=== PATIENT | female | born 1950 | race Caucasian/White ===

== ENCOUNTER 2017-07-24 05:25 | Inpatient (IN) ==
[2017-07-19 12:50] LABS: Basophils # (Auto) 0 K/mcL (0.0-0.3); Basophils % (Auto) 0.4 % (0.0-2.0); Eosinophils # (Auto) 0.2 K/mcL (0.0-0.7); Eosinophils % (Auto) 2.1 % (0.0-7.0); Granulocytes % (Auto) 70.6 % (38.0-78.0); Lymphocytes # (Auto) 1.6 K/mcL (1.5-4.8); Lymphocytes % (Auto) 19.4 % (15.5-49.0); Mean Cell Volume 92.9 fL (80.0-100.0); Mean Corpuscular HGB Conc 34.1 g/dL (31.0-36.0); Mean Corpuscular Hemoglobin 31.6 pg (26.0-34.0); Monocytes # (Auto) 0.6 K/mcL (0.1-0.9); Monocytes % (Auto) 7.5 % (1.0-12.0); Platelet Count 321 K/mcL (140-440); RBC 4.78 M/mcL (4.00-5.20); Red Cell Distribution Width 13.7 % (11.5-14.5)
[2017-07-19 12:51] LABS: Blood Urea Nitrogen 12 mg/dl (8-23)
[2017-07-19 13:08] LABS: Appearance,Urine CLEAR; Bacteria,Urine 0 /hpf (0); Bilirubin,Urine NEG (NEG); Color,Urine STRAW; Glucose,Urine (UA) NEGATIVE (NEG); Leukocyte Esterase,Urine 500 /uL (NEG); Mucus,Urine FEW /hpf (0); Nitrate,Urine NEG (NEG); Protein,Urine NEG (NEG); Specific Gravity,Urine 1.004 (1.000-1.035); Urine Blood 0.2 mg/dL (<0.03); Urine RBC 0 /hpf (0-1); Urine Squamous Epithelial Cell 1 /hpf (0-4); Urine Transitional Epi Cells < 1 /hpf (0-2); Urine WBC 17 /hpf (0-4); Urobilinogen,Urine NEG (NEG)
[~2017-07-24 05:25] MED LIST: CELECOXIB 200 MG CAPSULE PO SCH; PREGABALIN 75 MG CAPSULE PO SCH; ceFAZolin 1 GM VIAL IV SCH; oxyCODONE 10 MG TAB.ER.12H PO SCH
[2017-07-24] MEDS ORDERED: KETOROLAC 30 MG, ROPIVACAINE HCL/PF 49.5 ML, EPINEPHrine 0.5 MG, 0.9 % SODIUM CHLORIDE ... IJ SCH (06:30)
[2017-07-24] MEDS ORDERED: TRANEXAMIC ACID 1,000 MG/10 ML VIAL IV ONE (10:00)
[2017-07-24] MEDS ORDERED: LIDOCAINE HCL/PF 100 MG/5 ML SYRINGE IV ONE (10:00)
[2017-07-24] MEDS ORDERED: MIDAZOLAM 2 MG/2 ML VIAL IV ONE (10:00)
[2017-07-24] MEDS ORDERED: DEXAMETHASONE 10 MG/ML VIAL IV ONE (10:00)
[2017-07-24] MEDS ORDERED: ROPIVACAINE HCL/PF 20 ML VIAL IJ ONE (10:00)
[2017-07-24] MEDS ORDERED: ONDANSETRON 4 MG/2 ML VIAL IV ONE (10:00)
[2017-07-24] MEDS ORDERED: PROPOFOL 200 MG/20 ML VIAL IV ONE (10:00)
[2017-07-24] MEDS ORDERED: GENTAMICIN SULFATE 800 MG/20 ML VIAL IR ONE (11:02)
[2017-07-24] MEDS ORDERED: diphenhydrAMINE 50 MG/ML VIAL IV PRN (11:10)
[2017-07-24] MEDS ORDERED: METHOCARBAMOL 1,000 MG/10 ML VIAL IV PRN (11:10)
[2017-07-24] MEDS ORDERED: IPRATROPIUM/ALBUTEROL 3 ML AMPUL.NEB NEB PRN (11:10)
[2017-07-24] MEDS ORDERED: LACTATED RINGERS 250 ML IV PRN (11:10)
[2017-07-24] MEDS ORDERED: HYDROmorphone 2 MG/ML SYRINGE IV PRN ×2 (11:10→11:23)
[2017-07-24] MEDS ORDERED: FLUMAZENIL 0.1 MG/ML ML IV PRN (11:10)
[2017-07-24] MEDS ORDERED: PROMETHAZINE 25 MG/ML VIAL IM PRN (11:10)
[2017-07-24] MEDS ORDERED: BENZOCAINE/MENTHOL 1 LOZENGE PO PRN ×2 (11:10→11:23)
[2017-07-24] MEDS ORDERED: MEPERIDINE 50 MG/ML SYRINGE IM PRN (11:10)
[2017-07-24] MEDS ORDERED: ONDANSETRON 4 MG/2 ML VIAL IV PRN ×2 (11:10→11:23)
[2017-07-24] MEDS ORDERED: NALOXONE HCL 0.4 MG/ML VIAL IV PRN (11:10)
[2017-07-24] MEDS ORDERED: PROMETHAZINE 25 MG/ML VIAL IV PRN (11:10)
[2017-07-24] MEDS ORDERED: ePHEDrine 50 MG/ML AMPUL IV PRN (11:10)
[2017-07-24] MEDS ORDERED: MEPERIDINE 25 MG/ML SYRINGE IV PRN (11:10)
[2017-07-24] MEDS ORDERED: LACTATED RINGERS 1,000 ML IV SCH (11:15)
[2017-07-24] MEDS ORDERED: METHOCARBAMOL 750 MG TABLET PO PRN (11:23)
[2017-07-24] MEDS ORDERED: FLEETS ADULT ENEMA PR PRN (11:23)
[2017-07-24] MEDS ORDERED: POLYETHYLENE GLYCOL 3350 17 GM PACKET PO PRN (11:23)
[2017-07-24] MEDS ORDERED: ONDANSETRON ODT 4 MG TABLET SL PRN (11:23)
[2017-07-24] MEDS ORDERED: TRANEXAMIC ACID 1,000 MG/10 ML VIAL IV SCH (11:23)
[2017-07-24] MEDS ORDERED: BISACODYL 10 MG SUPP.RECT PR PRN (11:23)
[2017-07-24] MEDS ORDERED: MAGNESIUM HYDROXIDE 30 ML ORAL.SUSP PO PRN (11:23)
--- NOTE | 2017-07-24 11:23 | Brief Operative Note ---
Date of procedure: 07/24/17 Pre-op diagnosis: right knee oa Post-op diagnosis: same Procedure: right total knee arthroplasty Grafts/Implants: Yes Anesthesia: spinal Complications: none Surgeon: Renan Cardoso Endoscopy Support Specialist: Saloni Ochoa Estimated blood loss (cc): 100 Specimens Removed/Pathology: none sent Condition: stable Disposition: PACU
[2017-07-24] MEDS: ACETAMINOPHEN 1,000 MG/100 ML BOTTLE IV SCH ×2 (11:45→18:28)
[2017-07-24] MEDS: fentaNYL 100 MCG/2 ML VIAL IV PRN ×3 (11:50→12:05)
--- NOTE | 2017-07-24 12:33 | Operative Note ---
DATE OF OPERATION: 07/24/2017 PREOPERATIVE DIAGNOSIS: Degenerative joint disease, right knee. POSTOPERATIVE DIAGNOSIS: Degenerative joint disease, right knee. PROCEDURE: Right total knee arthroplasty. SURGEON: Alex Cardoso M.D. AGRICULTURAL ECONOMICS TEACHER SURGEON: Saloni Ochoa PA-C ANESTHESIA: Spinal with LMA assist. ESTIMATED BLOOD LOSS: 100 mL COMPLICATIONS: None noted. SPECIMENS REMOVED: None DRAINS: Medium Hemovac x 1. TOURNIQUET TIME: 54 minutes at 300 mmHg IMPLANTS: DePuy Attune femoral posterior stabilized size 6, right narrow; DePuy Attune fixed bearing tibial baseplate size 5 cemented; DePuy Attune tibial insert fixed bearing posterior stabilized size 6, 5 mm AOX; DePuy Attune patella medialized dome, 35 mm cemented AOX; DePuy CMW2 bone cement 20 grams x4. INDICATIONS: The patient has had a long-standing history of worsening pain in the knee that has failed conservative treatment. Radiographs have confirmed advanced degenerative joint disease. After a long discussion about treatment options, the patient elected to proceed with a knee arthroplasty. The risks and benefits were discussed with the patient in detail including, but not limited to, the risks of anesthesia, problems with the heart or lungs related to anesthesia, infection, compromise or injury to the nerves and blood vessels, deep venous thrombosis, pulmonary embolism, pneumonia, continued pain after surgery, worsening pain or symptoms after surgery, swelling, loss of motion, instability, leg length discrepancy, and need for repeat surgery. DESCRIPTION OF PROCEDURE: The patient was seen in the pre-anesthesia waiting room where all questions were answered and the correct side and site were identified and marked. The patient was transferred to the operating room and administered the anesthetic and given pre-operative antibiotics. A time-out was then called. The extremity was prepped and draped, exsanguinated, and the tourniquet was inflated to 300 mmHg. A midline skin incision was then made with a standard medial parapatellar arthrotomy. Debridement of the menisci, ACL, and PCL was performed followed by balancing releases in the medial lateral plane. We then established intramedullary access to both the femur and tibia in a standard fashion. The femoral guide fox was initially placed with the distal femoral guide, pinned into place, and the distal femoral cut was performed and checked with a flat plate. We then turned our attention to the tibia. The intramedullary guide was placed with the proximal tibial cutting block. The block was appropriately positioned off the affected side, varus and valgus was checked with the extra-medullary guide, and the block was pinned into place. The proximal tibial cut was performed and the tibia was prepared for the tibial implant with appropriate rotation. The tibia, femur, and posterior compartment were debrided of osteophytes, loose bodies, and meniscal fragments We then used the gap balancing technique to balance extension with the first two cuts and good balancing was obtained with a 10 millimeter gap block. We turned our attention back to the femur and used the referencing block and implant to size appropriately. Using the gap balancing technique for the flexion space we set our rotation of the femur off the tibial cut. Anesthesia gave the patient 1 gram of Tranexamic Acid via an intravenous route. We placed the 4 in 1 cutting block and made anterior, posterior, and chamfer cuts. Box plasty cuts were then made in a standard fashion for the posterior stabilized prosthesis. We then completed osteophyte release and posterior capsule release from the posterior compartment. Trials were placed and we chose the polyethylene insert thickness that provided the best stability in all planes. With the trials in place, we did a measured resection for a resurfacing patella. We sized the patella and placed the patella trial and performed a lateral facetectomy with the saw and rongeur. Good tracking was obtained. We removed all trials, irrigated and dried all cut surfaces. We cemented the components into place including tibia, femur and patella. We placed a trial liner and held the knee in full extension with the patella compressed while the cement cured. We then removed all excess cement and placed the final polyethylene tibiofemoral component. Irrigation with 3 liters of antibiotic saline was then performed using jet-lavage. We let the tourniquet down and coagulated bleeding vessels. We injected a 100 cubic centimeter volume including Ropivacaine 49.25 cubic centimeters at 5 milligrams per cubic centimeter, Ketorolac 30 milligrams, and Epinephrine 0.5 milligrams into 100 cubic centimeters volume of normal saline. We placed a deep drain and closed the retinaculum with looped #0 Maxon. We closed the subcutaneous tissue and skin in layers out to ole in the skin. A sterile pressure dressing was applied. All needle and sponge counts were correct. The patient was transferred to the recovery room in stable condition. WANDY:cheryl Job ID: [id number] Doc ID: [id number] Alex Cardoso MD
--- NOTE | 2017-07-24 12:39 | XRay Report ---
CLINICAL INFORMATION: Reason for Exam:Post-Op Total Knee COMPARISON: None. FINDINGS: Total knee prostheses is anatomically aligned. No osseous normality. Periarticular gas and soft tissue swelling seen as expected IMPRESSION: Negative Interpreted and Authenticated by: Renan Saunders 07/24/17
[2017-07-24] MEDS: KETOROLAC 15 MG/ML VIAL IV SCH ×2 (12:54→18:31)
[2017-07-24] MEDS: 0.9 % SODIUM CHLORIDE 1,000 ML IV SCH ×2 (12:55→19:42)
[2017-07-24] MEDS: FERROUS SULFATE 325 MG TABLET PO SCH ×2 (13:01→18:30)
[2017-07-24] MEDS: HYDROcodone/APAP 10/325MG TABLET PO PRN ×2 (15:24→19:49)
[2017-07-24] MEDS ORDERED: ACETAMINOPHEN 1,000 MG/100 ML BOTTLE IV PRN (18:28)
[2017-07-24] MEDS: ceFAZolin 1 GM VIAL IV SCH (18:30)
[2017-07-24] MEDS: 0.9 % SODIUM CHLORIDE 10 ML SYRINGE IV SCH ×2 (18:31→22:13)
[2017-07-24] MEDS: ASPIRIN 325 MG ENTERIC COATED TABLET PO SCH (19:47)
[2017-07-24] MEDS: DOCUSATE SODIUM 100 MG CAPSULE PO SCH (19:47)
[2017-07-24] MEDS ORDERED: SENNOSIDES 1 TABLET PO SCH (21:00)
[2017-07-24] MEDS: CHLORHEXIDINE GLUCONATE 1 ML ORAL.SOL SSP SCH (22:12)
[2017-07-25] MEDS: ceFAZolin 1 GM VIAL IV SCH (00:46)
[2017-07-25] MEDS: KETOROLAC 15 MG/ML VIAL IV SCH ×3 (00:47→12:17)
[2017-07-25] MEDS: HYDROcodone/APAP 10/325MG TABLET PO PRN ×4 (00:47→13:30)
[2017-07-25] MEDS: 0.9 % SODIUM CHLORIDE 10 ML SYRINGE IV SCH (06:50)
--- NOTE | 2017-07-25 07:12 | Orthopedic Progress Note ---
Subjective Patient information: Note initiated : 07/25/17 at 7:11 am Service Date, if different from initiated Date: [] Patient: Natalia Ybarra 67 y/o F admitted on 07/24/17 for Right Total Knee Arthroplasty. Chief Complaint: [] Interval history: doing very well. no pain Objective Vital signs: Vital Signs Temp Pulse Resp BP BP Pulse Ox 07/25/17 05:00 98.1 F 72 12 130/67 94 07/24/17 23:55 97.6 F 79 12 143/55 93 07/24/17 20:00 97.6 F 80 12 160/71 93 07/24/17 12:16 76 12 150/60 95 07/24/17 12:05 75 15 151/63 97 07/24/17 11:55 78 17 132/75 97 07/24/17 11:50 73 15 129/83 98 07/24/17 11:45 98.1 F 85 15 150/66 95 Intake and Output 07/24/17 07/25/17 07/25/17 21:59 05:59 13:59 Intake Total 240 / 240 200 / 200 Output Total 701 / 701 1400 / 1400 Balance -461 / -461 -1200 / -1200 Intake: Oral 240 / 240 200 / 200 Output: Void Amount 700 / 700 1400 / 1400 # of times incontinent of urine Other: Weight 236 lb 8 oz Intake & Output: Intake & Output 07/24/17 07/25/17 07/25/17 21:59 05:59 13:59 Intake Total 240 / 240 200 / 200 Output Total 701 / 701 1400 / 1400 Balance -461 / -461 -1200 / -1200 Weight 236 lb 8 oz Intake: Oral 240 / 240 200 / 200 Output: Void Amount 700 / 700 1400 / 1400 # of times incontinent of urine Incision: Yes healing Incision clean and dry: Yes Dressing: Yes clean, Yes dry, Yes intact Weight bearing status: full Neurological exam IM: Yes alert, Yes normal gait, Yes oriented X3, Yes motor sensory intact, Yes neurovascular intact Extremities exam IM: No calf tenderness, Yes Foot pink and warm, Yes neurovascular intact - Labs CBC & BMP: 07/25/17 05:05 07/19/17 10:48 Labs: Orthopedic Labs 07/19/17 10:48 PT 13.1 INR 1.0 07/25/17 07/19/17 05:05 10:48 Hgb 12.1 15.1 H Hct 35.8 L 44.4 Assessment and Plan (1) Knee osteoarthritis pod 1 s/p tka wbat pain control dvt prophylaxis home today if passes pt Status: Acute
--- NOTE | 2017-07-25 07:13 | Discharge Summary ---
Ortho Discharge - TKA - Patient Instructions Diet: Regular Diet Activity: ambulate with assistive device, weight bearing as tolerated Total Knee Protocol: For Total Knee: Start ROM LASHAY with stationary bike or rocking chair. Work on gaining full extension of knee. Posterior dislocation precautions provided. Hip abductor strengthening and gait training instructions provided. Apply Cryocuff as instructed. Dressing Care: May shower in 2 days, Other (keep dermabond in place) - Problem Maintenance (1) Knee osteoarthritis Status: Acute - Follow Up Plan Disposition: Home, Self-Care Prognosis: Good Rehab Potential: Good I certify that the patient requires SNF services: No Overall status at discharge: patient is progressing back to baseline
[2017-07-25] MEDS ORDERED: SENNOSIDES/DOCUSATE SODIUM 1 TAB TABLET PO SCH (09:00)
[2017-07-25] MEDS: ASPIRIN 325 MG ENTERIC COATED TABLET PO SCH (09:26)
[2017-07-25] MEDS: DOCUSATE SODIUM 100 MG CAPSULE PO SCH (09:26)
[2017-07-25] MEDS: CHLORHEXIDINE GLUCONATE 1 ML ORAL.SOL SSP SCH (11:43)
[2017-07-25] MEDS: FERROUS SULFATE 325 MG TABLET PO SCH (12:17)
== END 2017-07-25 15:35 | disposition home or self-care (01) | DRG 470 ==
LOC: MEDSUR 05:25
PROVIDERS: ADMIT Orthopaedic Surgery Sports Medicine; ATTEND Orthopaedic Surgery Sports Medicine

== ENCOUNTER 2021-05-06 10:47 | Inpatient (IN) ==
[2021-05-06] MEDS ORDERED: 0.9 % SODIUM CHLORIDE 1,000 ML IV ONE (11:31)
[2021-05-06 12:09] LABS: Basophils # (Auto) 0.01 K/mcL (0.00-0.20); Basophils % (Auto) 0.2 % (0.0-2.0); Eosinophils # (Auto) 0 K/mcL (0.00-0.70); Eosinophils % (Auto) 0 % (0.0-7.0); Hematocrit 41.5 % (36.0-48.0); Hemoglobin 14.4 g/dL (12.0-15.0); Lymphocytes # (Auto) 0.87 K/mcL (1.50-4.80); Lymphocytes % (Auto) 13.1 % (15.0-49.0); Mean Cell Volume 91.2 fL (80.0-100.0); Mean Corpuscular HGB Conc 34.7 g/dL (31.0-36.0); Mean Platelet Volume 10.1 fL (7.4-10.4); Monocytes # (Auto) 0.61 K/mcL (0.10-0.90); Monocytes % (Auto) 9.2 % (1.0-12.0); Neutrophils % (Auto) 77.5 % (38.0-78.0); Platelet Count 213 K/mcL (140-440); RBC 4.55 M/mcL (4.00-5.20); Red Cell Distribution Width 12.4 % (11.5-14.5); WBC 6.7 K/mcL (4.5-11.0)
[2021-05-06] MEDS ORDERED: ACETAMINOPHEN 325 MG TABLET PO ONE (12:54)
[2021-05-06 12:59] LABS: ALT/SGPT 30 U/L (<40); AST/SGOT 32 U/L (<32); Albumin 3.5 gm/dL (3.2-5.2); Alkaline Phosphatase 86 U/L (39-117); Bilirubin,Total 0.6 mg/dL (0.1-1.0); Blood Urea Nitrogen 9 mg/dL (8-23); Carbon Dioxide 25 mmol/L (22-30); Chloride 91 mmol/L (96-108); Globulin 3.4 gm/dL (2.2-3.7); Glomerular Filtration Rate 74; Glucose 126 mg/dL (70-105)
--- NOTE | 2021-05-06 13:04 | Emergency Department Note ---
HPI General Chief complaint: Cold/Flu Symptoms Stated complaint: Covid Time Seen by Provider: 05/06/21 11:31 Source: patient Mode of arrival: ambulatory Limitations: no limitations History of Present Illness HPI Narrative: Narrative: 70-year-old female presents to the emergency department after having initially presented at the urgent care and being sent here. At the urgent care she had a pulse ox of 89 to 90% on room air. She stated she felt weak and too tired to eat. She was diagnosed with Covid on April 25, 11 days ago. Patient denies any other respiratory illnesses or other illnesses. States she takes no medicines and has no allergies. States she quit tobacco 8 years ago. Has 2 drinks per day. Feels tired and states that conditions are getting worse. Related Data Home Medications Medication Instructions Recorded Confirmed sennosides-docusate sodium 2 tab PO DAILY 07/19/17 05/06/21 apple cidar vinegar PO 06/08/20 05/06/21 magnesium 200 mg tablet 200 mg PO QDAY 06/08/20 05/06/21 ibuprofen 200 mg tablet 600 mg PO QHS PRN tab 12/07/20 05/06/21 Previous Rx's Medication Instructions Recorded CPAP mask, tubings, and supplies #1 ea 07/29/19 Allergies Allergy/AdvReac Type Severity Reaction Status Date / Time morphine AdvReac Mild Abdominal Verified 05/06/21 09:57 Pain Review of Systems ROS ROS Narrative: Narrative: Constitutional: Reports fever Eyes: Denies eye discharge ENT ED: Reports rhinorrhea Cardiovascular: Denies chest pain Respiratory: Reports shortness of breath Gastrointestinal: Reports nausea and diarrhea; Denies vomiting Genitourinary: Denies dysuria Integumentary: Denies rash Psychiatric: Reports depression Hematological/Lymphatic: Denies easy bleeding Allergic/Immunologic: Denies facial swelling PFSH Narrative Patient History Narrative: Narrative: Medical/Surgical/Family History All Active Problems Respiratory tract infection due to COVID-19 virus (Acute) Acute hyponatremia (Acute) Shortness of breath (Acute) Hypoxia (Acute) Weakness (Acute) COVID-19 (Acute) Ventral incisional hernia (Chronic) Tear meniscus knee (Chronic) Chronic neck pain (Chronic) Knee pain (Chronic) Adrenal mass (Chronic) ELIZABETH (obstructive sleep apnea) (Chronic) Knee osteoarthritis (Chronic) Thoracic back pain (Chronic) Chest pain (Chronic) Medical History Adrenal mass Chronic neck pain COVID-19 Hypoxia Knee pain ELIZABETH (obstructive sleep apnea) Shortness of breath Tear meniscus knee Ventral incisional hernia Weakness Surgical History Fistula, bladder reports 1986 fistula repair "hole between bladder and vagina" History of back surgery (~1991) spondylolisthesis Grade 4 L4-5 History of cholecystectomy (02/25/74) History of hysterectomy (~1986) History of knee surgery (07/24/17) Hx of total adrenalectomy (12/09/17) right Family History Mother Diabetes mellitus Heart disease Sister Seizure disorder Social History Smoking Status: Former smoker Alcohol Intake Frequency: 0-2 drinks per day Substance Use: does not use Exam Narrative Narrative: Narrative: General Limitations: no limitations General appearance: Present alert and in distress Head Head: Present atraumatic and normocephalic Eye Eye: Present EOMI Neck Neck: Present full ROM and trachea midline Respiratory Respiratory: Present respiratory distress Extremities Extremities: Present full ROM Neurological Neurological: Present alert and oriented X3 Psychiatric Psychiatric: Present normal affect Skin Skin: Present intact Course Consultations Consultation #1: I placed a call to our hospitalist Dr. BRANCH to discuss admission.[id number] after discussion of the case the hospitalist accepted the admission. Time: 13:00 Vital Signs Vital signs: Vital Signs Temperature 98.7 F 05/06/21 10:48 Pulse Rate 73 05/06/21 10:48 Respiratory Rate 18 05/06/21 10:48 Blood Pressure 130/67 05/06/21 10:48 Pulse Oximetry (%) 91 05/06/21 10:48 Temperature 98.7 F 05/06/21 10:48 Pulse Rate 71 05/06/21 13:10 Respiratory Rate 18 05/06/21 10:48 Blood Pressure 125/62 05/06/21 13:10 Pulse Oximetry (%) 92 05/06/21 13:10 MDM MDM Narrative Medical decision making narrative: Narrative: Elderly female presents to the emergency department because of weakness and shortness of breath with a 11-day history of Covid. Differential diagnosis includes dehydration, anemia, pneumonia, Covid induced hypoxia, other Patient's pulse ox was 86 to 88% on room air upon arrival. She was given 1 L of normal saline and that brought her above 90%. Patient states that she has not been vaccinated against Covid. CBC was unremarkable but chemistry panel revealed a low sodium of 129 and a low chloride of 91. Patient was bolused a liter of normal saline to address the dehydration and to try to correct the hyponatremia. She also had a mildly elevated glucose of 126. Patient was feeling better after the oxygen administration. I discussed the case with the hospitalist who accepted the patient for admission. Lab Data Result diagrams: 05/06/21 11:40 05/06/21 11:40 Labs: Lab Results 05/06/21 05/06/21 05/06/21 Range/Units 11:40 11:40 11:47 WBC 6.7 (4.5-11.0) K/mcL RBC 4.55 (4.00-5.20) M/mcL Hgb 14.4 (12.0-15.0) g/dL Hct 41.5 (36.0-48.0) % MCV 91.2 (80.0-100.0) fL MCH 31.6 (26.0-34.0) pg MCHC 34.7 (31.0-36.0) g/dL RDW 12.4 (11.5-14.5) % Plt Count 213 (140-440) K/mcL MPV 10.1 (7.4-10.4) fL Neut % (Auto) 77.5 (38.0-78.0) % Lymph % (Auto) 13.1 L (15.0-49.0) % [place] % (Auto) 9.2 (1.0-12.0) % Eos % (Auto) 0 (0.0-7.0) % Baso % (Auto) 0.2 (0.0-2.0) % Lymph # (Auto) 0.87 L (1.50-4.80) K/mcL [place] # (Auto) 0.61 (0.10-0.90) K/mcL Eos # (Auto) 0 (0.00-0.70) K/mcL Baso # (Auto) 0.01 (0.00-0.20) K/mcL Absolute Neutrophils 5.17 (1.80-8.00) K/mcL VBG Lactic Acid 0.9 (0.5-2.0) mmol/L Sodium 129 L (133-145) mmol/L Potassium 3.3 (3.3-5.1) mmol/L Chloride 91 L (96-108) mmol/L Carbon Dioxide 25 (22-30) mmol/L Anion Gap 13.0 (8.0-16.0) BUN 9 (8-23) mg/dL Creatinine 0.8 (0.6-1.1) mg/dL GFR Calculation 74 Glucose 126 H (70-105) mg/dL Calcium 8.0 L (8.6-10.4) mg/dL Total Bilirubin 0.6 (0.1-1.0) mg/dL AST 32 H (<32) U/L ALT 30 (<40) U/L Alkaline Phosphatase 86 (39-117) U/L Total Protein 6.9 (5.9-8.4) gm/dL Albumin 3.5 (3.2-5.2) gm/dL Globulin 3.4 (2.2-3.7) gm/dL Albumin/Globulin Ratio 1.0 (1.0-2.3) Discharge Plan Patient/Caregiver Discharge Instructions Pt seen by ASSISTANT PROFESSOR OF SPANISH/PA only: No Clinical Impression: Respiratory tract infection due to COVID-19 virus, Acute hyponatremia Patient Disposition: Xfer As Inpt ([facility]) Condition: Fair Follow up with: Catrachita Squires [Primary Care Provider] - Prescriptions: No Action magnesium 200 mg tablet 200 mg PO QDAY RF: 0 apple cidar vinegar PO RF: 0 (DME) CPAP mask, tubings, and supplies Qty: 1 RF: 0 ibuprofen 200 mg tablet 600 mg PO QHS PRNRF: 0 sennosides-docusate sodium 1 EACH tablet 2 tab PO DAILY RF: 0
--- NOTE | 2021-05-06 13:36 | XRay Report ---
INDICATION: hypoxia wiht COVID TECHNIQUE: AP portable upright chest x-ray COMPARISON: None FINDINGS: Lungs:Interstitial infiltrate in the right upper lobe. This is a peripheral distribution. Appearance is consistent with covid pneumonia. No parenchymal consolidation. No focal mass Heart, vascular:No significant cardiomegaly. Pulmonary vascularity is normal. No pulmonary edema or pulmonary congestion Mediastinum, raymundo:No mediastinal widening. No hilar mass Pleura:No pleural fluid. No pleural-based mass or calcification Skeletal:Negative. IMPRESSION: 1. Right upper lobe interstitial infiltrate 2. Findings are consistent with covid pneumonia Interpreted and Authenticated by: Renan Polk 05/06/21
--- NOTE | 2021-05-06 13:42 | Internal Med History&Physical ---
HPI History of Present Illness Patient information: Note initiated : 05/06/21 at 1:36 pm Service Date, if different from initiated Date: [] Patient: Natalia Ybarra 70 y/o F admitted on for Covid. Chief Complaint: [] History of present illness: Ms. Ybarra is a 70 year old female with a history of obstructive sleep apnea, approximately 40 pack year smoking history with emphysema noted on prior CT chest, right thyroid nodule, obesity-BMI of 37 who self diagnosed herself with COVID-19 on April 25, 2021 when she developed headache, nausea, fatigue, diarrhea, fevers following exposure to a family member who was diagnosed with COVID-19. The patient tried coping at home as the illness followed a fluctuating course but she had difficulty keeping food and liquids down due to severe nausea. She presented to urgent care on May 06, 2021 for worsening fatigue and hypoxia for two days noted on a home oxygen saturation monitor. The patient was then referred to the [facility] ED where she was tachypneic with a respiratory rate in the mid 20's and hypoxic. She required 1 liter per minute of oxygen supplementation at that time. SARS-CoV-2 rapid antigen test was positive. Chest xray showed right upper lobe interstitial infiltrates consistent with COVID pneumonia. Additional workup in the ED showed moderate hyponatremia-Na 129. Review of systems Constitutional: positive for fever and fatigue Eyes: no vision changes or pain Cardiovascular: no chest pain, no palpitations Respiratory: positive for cough and shortness of breath Gastrointestinal: positive for nausea, vomiting, and diarrhea Genitourinary: no dysuria or difficulty voiding Musculoskeletal: no arthralgia or myalgia Integumentary: no skin lesion or wound Neurological: no focal weakness or numbness Psychiatric: no anxiety or depression Physical Exam Head: Atraumatic, normal inspection. Eyes: normal appearance, no scleral icterus. Neck: full ROM Respiratory: nasal canula oxygen no respiratory distress. Cardiovascular: normal rate and rhythm, S1, S2. GI/Abdominal: soft, nontender, no guarding. Extremities: full range of motion, nontender. Neurological: CN II-XII intact, intact motor, intact sensation. Psychiatric: normal mood. Skin: warm, normal color PFSH PFSH All Active Problems Respiratory tract infection due to COVID-19 virus (Acute) Acute hyponatremia (Acute) Shortness of breath (Acute) Hypoxia (Acute) Weakness (Acute) COVID-19 (Acute) Ventral incisional hernia (Chronic) Tear meniscus knee (Chronic) Chronic neck pain (Chronic) Knee pain (Chronic) Adrenal mass (Chronic) ELIZABETH (obstructive sleep apnea) (Chronic) Knee osteoarthritis (Chronic) Thoracic back pain (Chronic) Chest pain (Chronic) Medical History Adrenal mass Chronic neck pain COVID-19 Hypoxia Knee pain ELIZABETH (obstructive sleep apnea) Shortness of breath Tear meniscus knee Ventral incisional hernia Weakness Surgical History Fistula, bladder reports 1986 fistula repair "hole between bladder and vagina" History of back surgery (~1991) spondylolisthesis Grade 4 L4-5 History of cholecystectomy (02/25/74) History of hysterectomy (~1986) History of knee surgery (07/24/17) Hx of total adrenalectomy (12/09/17) right Family History Mother Diabetes mellitus Heart disease Sister Seizure disorder Social History physical activity: none alcohol intake frequency: 0-2 drinks per day substance use type: does not use seatbelt use: always working smoke detector in home: Yes firearms in home: No MEDS/ALLERGIES Home Medications and Allergies Home Medications Medication Instructions Recorded Confirmed Type sennosides-docusate sodium 2 tab PO DAILY 07/19/17 05/06/21 History CPAP mask, tubings, and supplies #1 ea 07/29/19 05/06/21 Rx magnesium 200 mg tablet 200 mg PO QDAY 06/08/20 05/06/21 History ibuprofen 200 mg tablet 600 mg PO QHS PRN tab 12/07/20 05/06/21 History Allergies Allergy/AdvReac Type Severity Reaction Status Date / Time morphine AdvReac Mild Abdominal Verified 05/06/21 09:57 Pain EXAM Constitutional Vitals: Temp Pulse Resp BP Pulse Ox 98.7 F 71 18 125/62 92 05/06/21 10:48 05/06/21 13:10 05/06/21 10:48 05/06/21 13:10 05/06/21 13:10 DATA Data Completed and Pending Labs: Labs from last 24 hours 05/06/21 05/06/21 05/06/21 12:05 11:47 11:40 WBC RBC Hgb Hct MCV MCH MCHC RDW Plt Count MPV Neut % (Auto) Lymph % (Auto) [place] % (Auto) Eos % (Auto) Baso % (Auto) Lymph # (Auto) [place] # (Auto) Eos # (Auto) Baso # (Auto) Absolute Neutrophils VBG Lactic Acid 0.9 Sodium 129 L Potassium 3.3 Chloride 91 L Carbon Dioxide 25 Anion Gap 13.0 BUN 9 Creatinine 0.8 GFR Calculation 74 Glucose 126 H Calcium 8.0 L Total Bilirubin 0.6 AST 32 H ALT 30 Alkaline Phosphatase 86 Total Protein 6.9 Albumin 3.5 Globulin 3.4 Albumin/Globulin Ratio 1.0 Urine Color Pending Urine Appearance Pending Urine pH Pending Ur Specific [employer] Pending Urine Protein Pending Urine Glucose (UA) Pending Urine Ketones Pending Urine Occult Blood Pending Urine Nitrate Pending Urine Bilirubin Pending Urine Urobilinogen Pending Ur Leukocyte Esterase Pending 05/06/21 11:40 WBC 6.7 RBC 4.55 Hgb 14.4 Hct 41.5 MCV 91.2 MCH 31.6 MCHC 34.7 RDW 12.4 Plt Count 213 MPV 10.1 Neut % (Auto) 77.5 Lymph % (Auto) 13.1 L [place] % (Auto) 9.2 Eos % (Auto) 0 Baso % (Auto) 0.2 Lymph # (Auto) 0.87 L [place] # (Auto) 0.61 Eos # (Auto) 0 Baso # (Auto) 0.01 Absolute Neutrophils 5.17 VBG Lactic Acid Sodium Potassium Chloride Carbon Dioxide Anion Gap BUN Creatinine GFR Calculation Glucose Calcium Total Bilirubin AST ALT Alkaline Phosphatase Total Protein Albumin Globulin Albumin/Globulin Ratio Urine Color Urine Appearance Urine pH Ur Specific [employer] Urine Protein Urine Glucose (UA) Urine Ketones Urine Occult Blood Urine Nitrate Urine Bilirubin Urine Urobilinogen Ur Leukocyte Esterase A/P Narrative A/P Narrative: Assessment: 70 year old female with a history of ELIZABETH, obesity, emphysema (noted on prior CT chest), right thyroid nodule, admitted for acute hypoxic respiratory failure secondary to severe COVID-19. #Acute hypoxic respiratory failure #Severe COVID-19 #Hyponatremia #Nausea #Generalized weakness #ELIZABETH #Obesity-BMI 37 #Right thyroid nodule #Emphysema s/ 40 pack year smoking history Plan -Dexamethasone and Remdesivir for severe COVID-19. -Oxygen supplementation as needed, monitor for respiratory deterioration. -Check CRP and follow inflammatory markers. -IV fluid. -Follow sodium. -CPAP at bedtime. -Self-proning as able. -Regular diet -DVT ppx: lovenox SQ -Code status: Casino Assistant Manager Spent With Patient Time: Total time spent is greater than 50% in coordination of care (as documented) at patient's floor/unit and/or counseling patient:
[2021-05-06 13:46] LABS: Appearance,Urine HAZY (Clear); Bilirubin,Urine Negative (Negative); Color,Urine YELLOW; Culture Indicated,Urine No; Glucose,Urine (UA) Negative (Negative); Ketones,Urine 5 mg/dL (Negative); Leukocyte Esterase,Urine Negative /ug (Negative); Mucus,Urine FEW /hpf; Nitrate,Urine Negative (Negative); Protein,Urine 30 mg/dL (Negative); Specific Gravity,Urine 1.011 (1.000-1.035); Urine Blood 0.03 mg/dL (Negative); Urine RBC 1 /hpf (0-3); Urine Squamous Epithelial Cell 1 /hpf (0-4); Urine WBC 3 /hpf (0-4)
[2021-05-06] MEDS ORDERED: ACETAMINOPHEN 325 MG TABLET PO PRN (15:19)
[2021-05-06] MEDS ORDERED: ONDANSETRON 4 MG/2 ML VIAL IV PRN (15:19)
[2021-05-06] MEDS ORDERED: ALBUTEROL SULFATE 2.5 MG/3 ML NEBULIZER NEB PRN (15:19)
[2021-05-06] MEDS: DEXAMETHASONE 10 MG/ML VIAL IV SCH (15:59)
[2021-05-06] MEDS: 0.9 % SODIUM CHLORIDE 1,000 ML IV SCH (15:59)
[2021-05-06] MEDS ORDERED: REMDESIVIR 200 MG in 0.9 % SODIUM CHLORIDE 250 ML IV ONE (16:00)
[2021-05-06] MEDS: ENOXAPARIN 40 MG/0.4 ML SYRINGE SQ SCH (16:00)
[2021-05-06] MEDS: SENNOSIDES 1 TABLET PO SCH (20:11)
[2021-05-06] MEDS: 0.9 % SODIUM CHLORIDE 10 ML SYRINGE IV SCH (22:14)
[2021-05-07] MEDS: 0.9 % SODIUM CHLORIDE 1,000 ML IV SCH ×2 (03:18→12:15)
[2021-05-07] MEDS: 0.9 % SODIUM CHLORIDE 10 ML SYRINGE IV SCH ×3 (05:58→20:44)
[2021-05-07 08:15] LABS: ALT/SGPT 26 U/L (<40); AST/SGOT 25 U/L (<32); Albumin 3.1 gm/dL (3.2-5.2); Alkaline Phosphatase 76 U/L (39-117); Bilirubin,Direct < 0.2 mg/dL (0-0.3); Bilirubin,Total 0.4 mg/dL (0.1-1.0); Blood Urea Nitrogen 9 mg/dL (8-23); Carbon Dioxide 25 mmol/L (22-30); Chloride 103 mmol/L (96-108); Globulin 3.1 gm/dL (2.2-3.7); Glomerular Filtration Rate 91; Glucose 140 mg/dL (70-105); Lactate Dehydrogenase 284 U/L (135-225); Phosphorous 2.5 mg/dL (2.5-4.5); Triglycerides 32 mg/dL (<150); Uric Acid 4.8 mg/dL (2.5-8.0)
[2021-05-07] MEDS: ENOXAPARIN 40 MG/0.4 ML SYRINGE SQ SCH (08:38)
[2021-05-07] MEDS: DEXAMETHASONE 10 MG/ML VIAL IV SCH (08:38)
[2021-05-07] MEDS ORDERED: REMDESIVIR 100 MG in 0.9 % SODIUM CHLORIDE 250 ML IV SCH (11:00)
--- NOTE | 2021-05-07 13:37 | Internal Med Progress Note ---
SUBJECTIVE Subjective Patient information: Note initiated : 05/07/21 at 1:33 pm Service Date, if different from initiated Date: [] Patient: Natalia Ybarra 70 y/o F admitted on 05/06/21 for Covid. Chief Complaint: [] Interval history: History of present illness: Ms. Ybarra is a 70 year old female with a history of obstructive sleep apnea, approximately 40 pack year smoking history with emphysema noted on prior CT chest, right thyroid nodule, obesity-BMI of 37 who self diagnosed herself with COVID-19 on April 25, 2021 when she developed headache, nausea, fatigue, diarrhea, fevers following exposure to a family member who was diagnosed with COVID-19. The patient tried coping at home as the illness followed a fluctuating course but she had di fficulty keeping food and liquids down due to severe nausea. She presented to urgent care on May 06, 2021 for worsening fatigue and hypoxia for two days noted on a home oxygen saturation monitor. The patient was then referred to the [facility] ED where she was tachypneic with a respiratory rate in the mid 20's and hypoxic. She required 1 liter per minute of oxygen supplementation at that time. SARS-CoV-2 rapid antigen test was positive. Chest xray showed right upper lobe interstitial infiltrates consistent with COVID pneumonia. Additional workup in the ED showed moderate hyponatremia-Na 129. 8/14: Feels much better today, able to keep down food and liquids, hyponatremia resolved, on room air. Review of systems:denies fevers and chills, positive for fatigue. Physical Exam Head: Atraumatic, normal inspection. Eyes: normal appearance, no scleral icterus. Neck: full ROM Respiratory: no respiratory distress. Cardiovascular: normal rate and rhythm, S1, S2. GI/Abdominal: soft, nontender, no guarding. Extremities: full range of motion, nontender. Neurological: CN II-XII intact, intact motor, intact sensation. Psychiatric: normal mood. Skin: warm, normal color Constitutional Vitals: Vital Signs Temp Pulse Resp BP Pulse Ox 97.7 F 71 18 134/71 94 05/07/21 11:13 05/07/21 11:13 05/07/21 11:13 05/07/21 11:13 05/07/21 11:13 Period Temp Pulse Resp BP Sys/Figueroa Pulse Ox Last 24 Hr 96.6 F-98.7 F 63-78 - 131-155/64-82 91-95 Intake and Output 05/06/21 05/07/21 05/07/21 21:59 05:59 13:59 Intake Total 1250 480 895 Output Total 0 Balance 1250 480 895 Weight 106.413 kg Intake & Output: Intake & Output 05/06/21 05/07/21 05/07/21 21:59 05:59 13:59 Intake Total 1250 480 895 Output Total 0 Balance 1250 480 895 Weight 106.413 kg Intake: IV 1250 895 Sodium Chloride 0.9% 1,000 ml @ 1000 895 100 mls/hr IV .Q10H ELLIOT Rx#: [id number] Veklury 200 mg In Sodium 250 Chloride 0.9% 250 ml @ 500 mls/ hr IV ONCE ONE Rx#:[id number] Oral 0 480 Output: Void Amount 0 Other: # Voids 2 OBJ DATA Labs CBC & Chem 7: 05/06/21 11:40 05/07/21 05:43 Labs: Abnormal Lab Results 05/07/21 05/06/21 05/06/21 05:43 12:05 11:40 Lymph % (Auto) Lymph # (Auto) Sodium 129 L Chloride 91 L Glucose 140 H 126 H Calcium 8.0 L 8.0 L AST 32 H Lactate Dehydrogenase 284 H C-Reactive Protein 7.90 H Albumin 3.1 L Urine Appearance Hazy A Urine Protein 30 A Urine Ketones 5 A Urine Urobilinogen 4.0 A Urine Mucus Few A 05/06/21 11:40 Lymph % (Auto) 13.1 L Lymph # (Auto) 0.87 L Sodium Chloride Glucose Calcium AST Lactate Dehydrogenase C-Reactive Protein Albumin Urine Appearance Urine Protein Urine Ketones Urine Urobilinogen Urine Mucus Meds: Medications Acetaminophen (Acetaminophen 325 Mg Tablet) 650 mg PO Q6HP PRN; Protocol PRN Reason: Per Pain Protocol/Fever > 101 Albuterol Sulfate (Albuterol Sulfate 2.5 Mg/3 Ml Nebulizer) 2.5 mg NEB Q2HP PRN PRN Reason: Shortness Of Breath Dexamethasone (Dexamethasone 10 Mg/Ml Vial) 6 mg IV DAILY ELLIOT Stop: 05/16/21 15:18 Last Admin: 05/07/21 08:38 Dose: 6 mg Documented by: Enoxaparin Sodium (Enoxaparin 40 Mg/0.4 Ml Syringe) 40 mg SQ DAILY [facility], [facility]1983 Last Admin: 05/07/21 08:38 Dose: 40 mg Documented by: Sodium Chloride (Sodium Chloride 0.9%) 1,000 mls @ 100 mls/hr IV .Q10H [facility], [facility] Last Admin: 05/07/21 12:15 Dose: 100 mls/hr Documented by: REMDESIVIR 100 mg/ Sodium (Chloride) 250 mls @ 500 mls/hr IV DAILY@1100 [facility], [facility]1983 Stop: 05/10/21 11:29 Last Admin: 05/07/21 11:36 Dose: 500 mls/hr Documented by: Ondansetron HCl (Ondansetron 4 Mg/2 Ml Vial) 4 mg IV Q6HP PRN PRN Reason: Nausea And Vomiting Senna (Sennosides 1 Tablet) 2 tab PO HS [facility], [facility] Last Admin: 05/06/21 20:11 Dose: Not Given Documented by: Sodium Chloride (0.9 % Sodium Chloride 10 Ml Syringe) 10 ml IV Q8 [facility], [facility] Last Admin: 05/07/21 12:45 Dose: Not Given Documented by: A/P Narrative A/P Narrative: Assessment: 70 year old female with a history of ELIZABETH, obesity, emphysema (noted on prior CT chest), right thyroid nodule, admitted for acute hypoxic respiratory failure secondary to severe COVID-19. The patient was started on Dexamethasone and Remdesivir. Hypoxia resolved the next day and the patient felt much better overall. #Acute hypoxic respiratory failure #Severe COVID-19 #Hyponatremia #Nausea #Generalized weakness #ELIZABETH #Obesity-BMI 37 #Right thyroid nodule #Emphysema s/ 40 pack year smoking history Plan -Dexamethasone and Remdesivir for severe COVID-19. -Oxygen supplementation as needed. -Discontinue IV fluid. -CPAP at bedtime. -Self-proning as able. -Regular diet -DVT ppx: lovenox SQ -Code status: Full -Disposition: possibly home tomorrow. Time Spent With Patient Time: Total time spent is greater than 50% in coordination of care (as documented) at patient's floor/unit and/or counseling patient: QUALITY VTE Deep Vein Thrombosis/Pulmonary Embolism Present on Admission: No
[2021-05-07] MEDS: SENNOSIDES 1 TABLET PO SCH (20:44)
[2021-05-08] MEDS: 0.9 % SODIUM CHLORIDE 10 ML SYRINGE IV SCH (05:17)
[2021-05-08 06:42] LABS: ALT/SGPT 24 U/L (<40); AST/SGOT 17 U/L (<32); Albumin 3.1 gm/dL (3.2-5.2); Alkaline Phosphatase 75 U/L (39-117); Bilirubin,Direct < 0.2 mg/dL (0-0.3); Bilirubin,Total 0.4 mg/dL (0.1-1.0); Blood Urea Nitrogen 12 mg/dL (8-23); Calcium 8.3 mg/dL (8.6-10.4); Carbon Dioxide 24 mmol/L (22-30); Chloride 105 mmol/L (96-108); Glomerular Filtration Rate 87; Glucose 132 mg/dL (70-105); Lactate Dehydrogenase 251 U/L (135-225); Phosphorous 2.3 mg/dL (2.5-4.5); Triglycerides 37 mg/dL (<150); Uric Acid 4.6 mg/dL (2.5-8.0)
[2021-05-08] MEDS: ENOXAPARIN 40 MG/0.4 ML SYRINGE SQ SCH (09:44)
[2021-05-08] MEDS: DEXAMETHASONE 10 MG/ML VIAL IV SCH (09:44)
--- NOTE | 2021-05-08 09:49 | Discharge Summary ---
Discharge Provider Provider Patient information: Note initiated : 05/08/21 at 9:47 am Service Date, if different from initiated Date: [] Patient: Natalia Ybarra 70 y/o F admitted on 05/06/21 for Covid. Chief Complaint: [] Date of admission: 05/06/21 15:13 Discharge date: 05/08/21 Primary care physician: Catrachita Squires Consults: 05/06/21 Consult to Physician [CONS] Stat Comment: Consulting Provider: Colten Richardson Reason For Exam: Physician to Consult Discharge Meds Discharge Medications Home Medications sennosides-docusate sodium 2 tab PO DAILY 07/19/17 [History Confirmed 05/06/21 Last Taken 07/22/17] CPAP mask, tubings, and supplies #1 ea 07/29/19 [Rx Confirmed 05/06/21 Last Taken Unknown] magnesium 200 mg tablet 200 mg PO QDAY 06/08/20 [History Confirmed 05/06/21 Last Taken Unknown] ibuprofen 200 mg tablet 600 mg PO QHS PRN tab 12/07/20 [History Confirmed 05/06/21 Last Taken Unknown] dexamethasone 6 mg PO QDAY 8 Days #8 tab 05/08/21 [Rx Last Taken Unknown] COURSE Hospital Course Hospital course: History of present illness: Ms. Ybarra is a 70 year old female with a history of obstructive sleep apnea, approximately 40 pack year smoking history with emphysema noted on prior CT chest, right thyroid nodule, obesity- BMI of 37 who self diagnosed herself with COVID-19 on April 25, 2021 when she developed headache, nausea, fatigue, diarrhea, fevers following exposure to a family member who was diagnosed with COVID-19. The patient tried coping at home as the illness followed a fluctuating course but she had difficulty keeping food and liquids down due to severe nausea. She presented to urgent care on May 06, 2021 for worsening fatigue and hypoxia for two days noted on a home oxygen saturation monitor. The patient was then referred to the [facility] ED where she was tachypneic with a respiratory rate in the mid 20's and hypoxic. She required 1 liter per minute of oxygen supplementation at that time. SARS-CoV-2 rapid antigen test was positive. Chest xray showed right upper lobe interstitial infiltrates consistent with COVID pneumonia. Additional workup in the ED showed moderate hyponatremia-Na 129. 8/14: Feels much better today, able to keep down food and liquids, hyponatremia resolved, on room air. 05/08: Discharged to home where she will complete 10 days of Dexamethasone 6 mg daily. Physical Exam Head: Atraumatic, normal inspection. Eyes: normal appearance, no scleral icterus. Neck: full ROM Respiratory: no respiratory distress. Cardiovascular: normal rate and rhythm, S1, S2. GI/Abdominal: soft, nontender, no guarding. Extremities: full range of motion, nontender. Neurological: CN II-XII intact, intact motor, intact sensation. Psychiatric: normal mood. Skin: warm, normal color Discharge diagnosis: Severe COVID-19 pneumonia Time Spent with Patient Time attestation: Total time spent providing and/or coordinating discharge services: EXAM Constitutional Vitals: Temp Pulse Resp BP Pulse Ox 98.4 F 61 18 138/66 93 05/08/21 07:44 05/08/21 07:44 05/08/21 07:44 05/08/21 07:44 05/08/21 07:44 Discharge Data Data Completed and Pending Labs on day of discharge: Labs from last 24 hours 05/08/21 05/08/21 05:36 05:36 Sodium 140 Potassium 3.6 Chloride 105 Carbon Dioxide 24 Anion Gap 11.0 BUN 12 Creatinine 0.7 GFR Calculation 87 Glucose 132 H Uric Acid 4.6 Calcium 8.3 L Phosphorus 2.3 L Magnesium 2.3 Total Bilirubin 0.4 Direct Bilirubin < 0.2 GGT 18 AST 17 ALT 24 Alkaline Phosphatase 75 Lactate Dehydrogenase 251 H C-Reactive Protein 3.40 H Total Protein 6.1 Albumin 3.1 L Globulin 3.0 Albumin/Globulin Ratio 1.0 Triglycerides 37 Discharge Plan Patient/Caregiver Discharge Instructions Activity: increase activity as tolerated Diet: Regular Diet Prescriptions: New dexamethasone 6 mg tablet 6 mg PO QDAY 8 Days Qty: 8 RF: 0 Continued magnesium 200 mg tablet 200 mg PO QDAY RF: 0 (DME) CPAP mask, tubings, and supplies Qty: 1 RF: 0 ibuprofen 200 mg tablet 600 mg PO QHS PRN (Reason: Pain) RF: 0 sennosides-docusate sodium 1 EACH tablet 2 tab PO DAILY RF: 0 Follow Up Plan Follow up with: Catrachita Squires [Primary Care Provider] - Patient Disposition: Home, Self-Care Prognosis: Fair Discharge Orders: Discharge Order (Routine); Ordered 05/08/21 Ordered By: Colten RENDON VTE Deep Vein Thrombosis/Pulmonary Embolism Present on Admission: No
== END 2021-05-08 12:55 | disposition home or self-care (01) | DRG 177 ==
LOC: ED 10:47 → MEDSUR 15:13
PROVIDERS: ADMIT Internal Medicine; ATTEND Internal Medicine